=== PATIENT | female | born 1975 | race Caucasian/White ===

== ENCOUNTER 2017-12-25 11:23 | Emergency (ER) | payer BC, OTHER ==
[2016-02-22 09:21] VITALS: BMI 26.0
[~2017-12-25 11:23] MED LIST: CYCLOBENZAPRINE10 MG PO; DEPO-PROVER150 MG/ML IM; LEXAPRO20 MG PO; MIRALAX17 GM PO; NUCYNTA100 MG PO; OXYCODONE HCL5 MG PO; SEROQUEL100 MG PO; ULTRAM50 MG PO; ZOLOFT100 MG PO
[2017-12-25 12:11] LABS: BASOPHILS 0.3 % (0-2); EOSINOPHILS 1.6 % (0-7); HEMATOCRIT 42.3 % (36.0-48.0); IMMATURE GRANULOCYTES 0.1 % (0-5); LYMPHOCYTES 25.6 % (15-50); MCH 30.2 pg (26.0-34.0); MCHC 33.1 g/dL (31.0-37.0); MCV 91.4 fL (80.0-100.0); MEAN PLATELET VOLUME 10.4 fL (7.4-10.4); MONOCYTES 9.7 % (2-11); NEUTROPHILS 62.7 % (40-80); RBC 4.63 10x6/uL (4.00-5.40); RDW 12.7 % (11.5-14.5); WBC 6.7 10x3/uL (4.8-10.8)
[2017-12-25 12:19] LABS: PLATELET COUNT 195 10x3/uL (130-400)
[2017-12-25 12:24] LABS: ALBUMIN 3.1 g/dL (3.4-5.0); ALKALINE PHOSPHATASE 126 U/L (46-116); ALT (SGPT) 21 U/L (10-68); BILIRUBIN - TOTAL 0.26 mg/dL (0.2-1.3); CALC OSMOLALITY 270 mosm/kg (275-300); CALCIUM 8.9 mg/dL (8.5-10.1); CARBON DIOXIDE 27.6 mmol/L (21.0-32.0); CHLORIDE - SERUM 101 mmol/L (98-107); CREATININE - SERUM 0.7 mg/dL (0.6-1.3); GLUCOSE 93 mg/dL (74-106); POTASSIUM - SERUM 4.3 mmol/L (3.5-5.1); PROTEIN - SERUM 7.9 g/dL (6.4-8.2); SODIUM 136 mmol/L (136-145); UREA NITROGEN 11 mg/dL (7-18); eGFR NON AFRICAN AMERICAN > 90 mL/min (90-120)
[2017-12-25 12:28] LABS: CREATINE KINASE 89 UL (21-215); TROPONIN-I < 0.017 ng/mL (0.000-0.060)
== END 2017-12-25 13:35 | disposition home or self-care (01) ==
LOC: D.ER 11:23
PROVIDERS: Emergency Medicine
DX: J18.9 Pneumonia, unspecified organism (principal); F17.200 Nicotine dependence, unspecified, uncomplicated

== ENCOUNTER 2017-12-29 21:30 | Emergency (ER) | payer BC, OTHER ==
[2016-02-22 09:21] VITALS: BMI 26.0
[2017-12-29 23:41] LABS: BASOPHILS 0.1 % (0-2); EOSINOPHILS 0.6 % (0-7); HEMATOCRIT 44.1 % (36.0-48.0); HEMOGLOBIN 14.6 g/dL (12-16); IMMATURE GRANULOCYTES 0.3 % (0-5); LYMPHOCYTES 53.1 % (15-50); MCH 29.7 pg (26.0-34.0); MCHC 33.1 g/dL (31.0-37.0); MCV 89.6 fL (80.0-100.0); MEAN PLATELET VOLUME 10.6 fL (7.4-10.4); NEUTROPHILS 39.9 % (40-80); PLATELET COUNT 222 10x3/uL (130-400); RBC 4.92 10x6/uL (4.00-5.40); RDW 12.6 % (11.5-14.5); WBC 8.8 10x3/uL (4.8-10.8)
[2017-12-29 23:58] LABS: ALBUMIN 3.4 g/dL (3.4-5.0); ALKALINE PHOSPHATASE 130 U/L (46-116); ALT (SGPT) 29 U/L (10-68); BILIRUBIN - TOTAL 0.25 mg/dL (0.2-1.3); CALC OSMOLALITY 280 mosm/kg (275-300); CALCIUM 9.1 mg/dL (8.5-10.1); CARBON DIOXIDE 31.9 mmol/L (21.0-32.0); CHLORIDE - SERUM 98 mmol/L (98-107); CREATININE - SERUM 0.8 mg/dL (0.6-1.3); GLUCOSE 120 mg/dL (74-106); POTASSIUM - SERUM 3.2 mmol/L (3.5-5.1); PROTEIN - SERUM 8.4 g/dL (6.4-8.2); SODIUM 141 mmol/L (136-145); UREA NITROGEN 11 mg/dL (7-18); eGFR NON AFRICAN AMERICAN 84 mL/min (90-120)
== END 2017-12-30 01:49 | disposition home or self-care (01) ==
LOC: D.ER 21:30
PROVIDERS: Emergency Medicine
DX: J18.9 Pneumonia, unspecified organism (principal)

== ENCOUNTER 2018-05-09 21:40 | Emergency (ER) | payer BC ==
[~2018-05-09] VITALS: Ht 170.2 cm; Wt 56.8 kg
[2018-05-09 21:49] VITALS: Ht 170.2 cm; Wt 56.8 kg
[2018-05-09 22:29] LABS: BASOPHILS 0.3 % (0-2); EOSINOPHILS 1.9 % (0-7); HEMATOCRIT 42.6 % (36.0-48.0); HEMOGLOBIN 14.3 g/dL (12-16); IMMATURE GRANULOCYTES 0.3 % (0-5); LYMPHOCYTES 40.7 % (15-50); MCH 29.9 pg (26.0-34.0); MCHC 33.6 g/dL (31.0-37.0); MCV 88.9 fL (80.0-100.0); MEAN PLATELET VOLUME 10.1 fL (7.4-10.4); NEUTROPHILS 50.8 % (40-80); PLATELET COUNT 231 10x3/uL (130-400); RBC 4.79 10x6/uL (4.00-5.40); RDW 12.8 % (11.5-14.5); WBC 7.2 10x3/uL (4.8-10.8)
[2018-05-09 22:44] LABS: ALBUMIN 3.2 g/dL (3.4-5.0); ALKALINE PHOSPHATASE 118 U/L (46-116); ALT (SGPT) 17 U/L (10-68); BILIRUBIN - TOTAL 0.18 mg/dL (0.2-1.3); CALC OSMOLALITY 279 mosm/kg (275-300); CALCIUM 8.6 mg/dL (8.5-10.1); CARBON DIOXIDE 33.2 mmol/L (21.0-32.0); CHLORIDE - SERUM 102 mmol/L (98-107); CREATININE - SERUM 0.7 mg/dL (0.6-1.3); GLUCOSE 91 mg/dL (74-106); POTASSIUM - SERUM 3.7 mmol/L (3.5-5.1); PROTEIN - SERUM 7.3 g/dL (6.4-8.2); SODIUM 141 mmol/L (136-145); UREA NITROGEN 10 mg/dL (7-18); eGFR NON AFRICAN AMERICAN > 90 mL/min (90-120)
[2018-05-09 22:45] LABS: APPEARANCE CLEAR (CLEAR); BILIRUBIN NEGATIVE (NEGATIVE); COLOR YELLOW (YELLOW); GLUCOSE NEGATIVE (NEGATIVE); KETONE NEGATIVE (NEGATIVE); NITRITE NEGATIVE (NEGATIVE); PROTEIN NEGATIVE (NEGATIVE); UROBILINOGEN NORMAL (NORMAL)
[2018-05-09 22:57] LABS: MONO NEGATIVE (NEGATIVE)
[2018-05-09 23:33] VITALS: BP 138/83
[2018-05-11 15:29] LABS: EBV - EARLY ANTIGEN AB IGG <9.0 U/mL (0.0-8.9); EBV VIRAL CAPSID AB IGG >600.0 U/mL (0.0-17.9); EBV VIRAL CAPSID AB IGM <36.0 U/mL (0.0-35.9)
== END 2018-05-09 23:32 | disposition home or self-care (01) ==
LOC: D.ER 21:40
PROVIDERS: Emergency Medicine
DX: F17.200 Nicotine dependence, unspecified, uncomplicated (principal)

== ENCOUNTER 2018-11-01 20:07 | Observation (INO) | payer BC, MEDICAID ==
[~2018-11-01] VITALS: Ht 170.2 cm; Wt 54.5 kg
[2018-11-01 20:45] LABS: BASOPHILS 0.1 % (0-2); EOSINOPHILS 0.5 % (0-7); HEMATOCRIT 46.2 % (36.0-48.0); HEMOGLOBIN 15.5 g/dL (12-16); IMMATURE GRANULOCYTES 0.3 % (0-5); LYMPHOCYTES 10.5 % (15-50); MCH 30.4 pg (26.0-34.0); MCHC 33.5 g/dL (31.0-37.0); MCV 90.6 fL (80.0-100.0); MONOCYTES 9.3 % (2-11); NEUTROPHILS 79.3 % (40-80); PLATELET COUNT 206 10x3/uL (130-400); RDW 13.3 % (11.5-14.5); WBC 17.3 10x3/uL (4.8-10.8)
[2018-11-01 21:02] LABS: ALBUMIN 3.2 g/dL (3.4-5.0); ANION GAP 16.4 mmol/L (8-16); BILIRUBIN - TOTAL 0.38 mg/dL (0.2-1.3); CALCIUM 9.6 mg/dL (8.5-10.1); CARBON DIOXIDE 26.8 mmol/L (21.0-32.0); CREATININE - SERUM 0.9 mg/dL (0.6-1.3); POTASSIUM - SERUM 4.2 mmol/L (3.5-5.1); PROTEIN - SERUM 8.8 g/dL (6.4-8.2)
[2018-11-01 22:00] VITALS: BP 122/80
[2018-11-01 23:23] VITALS: BP 124/82
--- NOTE | 2018-11-02 03:12 | NUR ---
PT AMBULATED TO RESTROOM INDEPENDENTLY WITHOUT DIFFICULTY. DENIES ANY NEEDS AT PRESENT
[2018-11-02 04:08] VITALS: BP 116/75
--- NOTE | 2018-11-02 05:00 | NUR ---
PT RESTING AT PRESENT. NO ACUTE DISTRESS NOTED. RESPIRATIONS EVEN AND UNLABORED
[2018-11-02 06:00] VITALS: BP 98/61
--- NOTE | 2018-11-02 06:01 | NUR ---
PT SLEEPING AT PRESENT. RESP EVEN AND UNLABORED
[2018-11-02 06:33] LABS: BASOPHILS 0.1 % (0-2); EOSINOPHILS 0 % (0-7); HEMATOCRIT 42.7 % (36.0-48.0); HEMOGLOBIN 14.1 g/dL (12-16); IMMATURE GRANULOCYTES 0.3 % (0-5); LYMPHOCYTES 6.8 % (15-50); MCH 29.9 pg (26.0-34.0); MCV 90.7 fL (80.0-100.0); MEAN PLATELET VOLUME 10.9 fL (7.4-10.4); MONOCYTES 1.5 % (2-11); NEUTROPHILS 91.3 % (40-80); PLATELET COUNT 201 10x3/uL (130-400); RBC 4.71 10x6/uL (4.00-5.40); RDW 13.4 % (11.5-14.5); WBC 14.2 10x3/uL (4.8-10.8)
[2018-11-02 06:57] VITALS: BP 107/71
[2018-11-02 07:17] LABS: CALC OSMOLALITY 279 mosm/kg (275-300); CARBON DIOXIDE 21.2 mmol/L (21.0-32.0); CHLORIDE - SERUM 104 mmol/L (98-107); GLUCOSE 124 mg/dL (74-106); MAGNESIUM - SERUM 2.5 mg/dL (1.8-2.4); PHOSPHOROUS 3.8 mg/dL (2.5-4.9); POTASSIUM - SERUM 4.2 mmol/L (3.5-5.1); SODIUM 139 mmol/L (136-145); UREA NITROGEN 15 mg/dL (7-18)
[2018-11-02 07:24] LABS: CREATININE - SERUM 0.6 mg/dL (0.6-1.3); eGFR NON AFRICAN AMERICAN > 90 mL/min (90-120)
--- NOTE | 2018-11-02 09:28 | NUR ---
PA HERE FOR DR RIVERA, STATES PT MIGHT BE ABLE TO GO HOME, PT VERY EXCITED, STATES SHE FEELS SO MUCH BETTER. SHE LILY. 100% OF AM MEAL, EATING ORANGE SHURBET NOW. IV CONT. TO INFUSE.
--- NOTE | 2018-11-02 10:01 | NUR ---
PT RESTING ON RIGHT SIDE, EYES CLOSED, NO DISCOMFORT NOTED.
[2018-11-02] MEDS ORDERED: STERAPRED DS 1010 MG PO (10:19)
[2018-11-02] MEDS ORDERED: ZITHROMAX500 MG PO (10:19)
[2018-11-02 10:24] VITALS: Ht 170.2 cm; Wt 54.5 kg
[2018-11-02 11:10] VITALS: BP 106/62
--- NOTE | 2018-11-02 12:17 | NUR ---
DISCHARGE PRESCRIPTIONS CALLED IN TO [facility] ON [address] - AZITHROMYCIN 500 MO PO DAILY AND PREDNISONE 6 DAY DOSE PACK - PLEASE SEE PHYSICIAN DOCUMENTATION. LEFT ON PROVIDER LINE VOICE-MAIL.
[2018-11-07 17:10] LABS: AEROBE ID Final report (())
== END 2018-11-02 13:12 | disposition home or self-care (01) ==
LOC: D.ER 20:07 → OBSVTIME 22:21 → D.EDHOLD 22:21
PROVIDERS: Family Medicine; ADMIT Internal Medicine Nephrology
DX: J02.0 Streptococcal pharyngitis (principal); F17.213 Nicotine dependence, cigarettes, with withdrawal; F32.9 Major depressive disorder, single episode, unspecified

== ENCOUNTER 2019-12-15 10:17 | Emergency (ER) | payer BC, MEDICAID ==
[~2019-12-15] VITALS: Ht 170.2 cm; Wt 59.1 kg
[~2019-12-15 10:17] MED LIST changes: +STERAPRED DS 1010 MG PO; +ZITHROMAX500 MG PO
[2019-12-15 10:27] VITALS: Ht 170.2 cm; Wt 59.1 kg
[2019-12-15 10:59] LABS: ANION GAP 9.3 mmol/L (8-16); CALCIUM 9.4 mg/dL (8.5-10.1); CARBON DIOXIDE 30.7 mmol/L (21.0-32.0)
[2019-12-15 11:06] LABS: ALBUMIN 3.4 g/dL (3.4-5.0); BILIRUBIN - TOTAL 0.5 mg/dL (0.2-1.3); PROTEIN - SERUM 8.2 g/dL (6.4-8.2)
[2019-12-15 11:11] LABS: BASOPHILS 0.1 % (0-2); EOSINOPHILS 0.1 % (0-7); HEMATOCRIT 44.6 % (36.0-48.0); HEMOGLOBIN 14.6 g/dL (12-16); IMMATURE GRANULOCYTES 0.4 % (0-5); LYMPHOCYTES 8.5 % (15-50); MCH 29.6 pg (26.0-34.0); MCHC 32.7 g/dL (31.0-37.0); MCV 90.3 fL (80.0-100.0); MEAN PLATELET VOLUME 10.2 fL (7.4-10.4); MONOCYTES 7.3 % (2-11); NEUTROPHILS 83.6 % (40-80); PLATELET COUNT 237 10x3/uL (130-400); RBC 4.94 10x6/uL (4.00-5.40); RDW 13.3 % (11.5-14.5); WBC 19.7 10x3/uL (4.8-10.8)
[2019-12-15] MEDS ORDERED: OMNICEF300 MG PO (12:39)
[2019-12-15] MEDS ORDERED: TAMIFLU75 MG PO (12:39)
[2019-12-15] MEDS ORDERED: HYDROCODON-ACE1 EAC7 PO (12:40)
[2019-12-15 13:19] VITALS: BP 128/78
== END 2019-12-15 13:20 | disposition home or self-care (01) ==
LOC: D.ER 10:17
PROVIDERS: Family Medicine
DX: J11.1 Influenza due to unidentified influenza virus with other respiratory manifestations (principal); Z72.0 Tobacco use